=== PATIENT | female | born 1995 | race African-American/Black ===

== ENCOUNTER 2025-06-11 09:22 | Emergency (ER) | payer MEDICAID ==
[~2025-06-11] VITALS: Ht 167.6 cm; Wt 61.0 kg
[~2025-06-11 09:22] MED LIST: HYDR-3782 PO
[2025-06-11 09:36] VITALS: O2SAT 100
[2025-06-11 10:43] LABS: CLARITY URINE CLEAR (CLEAR); COLOR URINE YELLOW (YELLOW); GLUCOSE URINE NEGATIVE (NEGATIVE); KETONES URINE NEGATIVE (NEGATIVE); LEUKOCYTE ESTERASE URINE 2+ (NEGATIVE); NITRITE URINE NEGATIVE (NEGATIVE); OCCULT BLOOD URINE NEGATIVE (NEGATIVE); PH URINE 5.5 (4.5-8.0); PROTEIN URINE NEGATIVE (NEGATIVE); SPECIFIC GRAVITY URINE 1.023 (1.005-1.030); UROBILINOGEN URINE 0.2 E.U./dL (0.2-1.0)
[2025-06-11 11:17] LABS: BACTERIA URINE TRACE; RBC URINE 0-2 /hpf (0-2); SQUAMOUS EPITHELIAL CELL URINE 1+ /lpf (RARE/1+); YEAST URINE NONE SEEN
[2025-06-11 12:28] LABS: BASOPHILS % 0.2 % (0.0-2.0); EOSINOPHILS % 0.3 % (0.0-5.0); HEMATOCRIT. 38.9 % (36.0-48.0); HEMOGLOBIN. 13.3 g/dL (12.0-16.0); LYMPHOCYTES % 22.8 % (20.0-50.0); MEAN PLATELET VOLUME 8.2 fl (7.4-10.4); MONOCYTES % 4.7 % (2.0-8.0); NEUTROPHILS % 72.0 % (40.0-76.0); PLATELET 295 x1000/uL (130-400); RED BLOOD CELL COUNT 4.15 mill/uL (4.2-5.4); RED CELL DISTRIBUTION WIDTH 13.3 % (11.6-14.6)
[2025-06-11 12:43] LABS: HCG SCREEN NEGATIVE
[2025-06-11 12:44] LABS: CREATININE 0.8 mg/dL (0.6-1.0); UREA NITROGEN BLOOD 7 mg/dL (9-23)
[2025-06-11 12:46] LABS: ASPARTATE AMINOTRANSFERASE 21 IU/L (<34); BILIRUBIN DIRECT 0.1 mg/dL (<=3.0); BILIRUBIN TOTAL 0.4 mg/dL (0.1-1.0)
[2025-06-11 12:47] LABS: PROTEIN TOTAL 8.7 g/dL (6.0-8.3)
[2025-06-11] MEDS ORDERED: NITR100C MT (13:26)
[2025-06-11 13:35] VITALS: BP 119/81; PULSE 82; RESP 15; TEMP 36.8; O2SAT 100
== END 2025-06-11 13:35 | disposition home or self-care (01) ==
LOC: ER 09:48
DX: N39.0 Urinary tract infection, site not specified (principal); R19.7 Diarrhea, unspecified; Z90.49 Acquired absence of other specified parts of digestive tract
CPT/HCPCS: 36415; 74176; 80048; 80076; 81003; 81025; 84703; 85025; 99284

== ENCOUNTER 2025-07-18 09:33 | Emergency (ER) | payer MEDICAID ==
[~2025-07-18] VITALS: Ht 167.6 cm; Wt 57.0 kg
[~2025-07-18 09:33] MED LIST changes: +NITR100C MT
[2025-07-18 09:36] VITALS: O2SAT 100
[2025-07-18 10:58] LABS: BASOPHILS % 0.4 % (0.0-2.0); EOSINOPHILS % 0.3 % (0.0-5.0); HEMATOCRIT. 36.1 % (36.0-48.0); HEMOGLOBIN. 12.2 g/dL (12.0-16.0); LYMPHOCYTES % 30.0 % (20.0-50.0); MEAN PLATELET VOLUME 7.5 fl (7.4-10.4); MONOCYTES % 5.5 % (2.0-8.0); NEUTROPHILS % 63.8 % (40.0-76.0); PLATELET 276 x1000/uL (130-400); RED BLOOD CELL COUNT 3.86 mill/uL (4.2-5.4); RED CELL DISTRIBUTION WIDTH 12.8 % (11.6-14.6)
[2025-07-18 11:12] LABS: CLARITY URINE CLEAR (CLEAR); COLOR URINE YELLOW (YELLOW); GLUCOSE URINE NEGATIVE (NEGATIVE); KETONES URINE 2+ (NEGATIVE); LEUKOCYTE ESTERASE URINE TRACE (NEGATIVE); NITRITE URINE NEGATIVE (NEGATIVE); OCCULT BLOOD URINE NEGATIVE (NEGATIVE); PH URINE 5.0 (4.5-8.0); PROTEIN URINE NEGATIVE (NEGATIVE); SPECIFIC GRAVITY URINE 1.028 (1.005-1.030); UROBILINOGEN URINE 0.2 E.U./dL (0.2-1.0)
[2025-07-18 11:20] LABS: CREATININE 0.8 mg/dL (0.6-1.0); UREA NITROGEN BLOOD 8 mg/dL (9-23)
[2025-07-18 11:21] LABS: PROTEIN TOTAL 8.0 g/dL (6.0-8.3)
[2025-07-18 11:22] LABS: ASPARTATE AMINOTRANSFERASE 23 IU/L (<34); BILIRUBIN DIRECT 0.1 mg/dL (<=3.0)
[2025-07-18 11:23] LABS: BILIRUBIN TOTAL 0.5 mg/dL (0.1-1.0)
[2025-07-18 11:33] LABS: HCG SCREEN NEGATIVE
[2025-07-18 12:02] LABS: MUCUS URINE 3+ /lpf (< = 2+); WBC URINE 0-2 /hpf (0-2)
[2025-07-18 12:03] LABS: CALCIUM OXALATE CRYSTALS URINE 1+ /lpf
[2025-07-18 12:04] LABS: BACTERIA URINE NONE SEEN; RBC URINE NONE SEEN /hpf (0-2); SQUAMOUS EPITHELIAL CELL URINE FEW /lpf (RARE/1+)
[2025-07-18 14:01] VITALS: BP 149/87; PULSE 88; RESP 18; TEMP 36.7; O2SAT 99
== END 2025-07-18 14:04 | disposition home or self-care (01) ==
LOC: ER 09:33
DX: R10.20 Pelvic and perineal pain unspecified side (principal); N91.0 Primary amenorrhea; Z90.49 Acquired absence of other specified parts of digestive tract
CPT/HCPCS: 36415; 76830; 76856; 80048; 80076; 81003; 81025; 84703; 85025; 93976; 99284